=== PATIENT | female | born 2005 | race Asian ===

== ENCOUNTER 2023-06-02 10:00 | Emergency (ER) | payer BC, SELFPAY ==
[2023-06-02 10:19] VITALS: BP 117/48; PULSE 70; RESP 16; TEMP 36.7; O2SAT 98; BMI 21.3
--- NOTE | 2023-06-02 10:42 | ED_ITS ---
HPI - Animal Bite General Chief Complaint: Animal Bite Stated Complaint: dog bite Time Seen by Provider: 06/02/23 10:37 Source: patient Mode of arrival: ambulatory Limitations: no limitations History of Present Illness HPI narrative: This is a 18-year-old female presenting to the emergency department for evaluation of dog bite to the right calf, patient reports that this happened last night [place] school campus, she reports that on known dog approached her and bit her right lower extremity, she reports pain, bruising, unclear on dog's vaccination status patient unsure if she has her tetanus shot. Denies fevers, chills, numbness, tingling, headache, vision changes, chest pain and shortness of breath. Related Data Previous Rx's Medication Instructions Recorded amoxicillin 875 mg-potassium 1 tab PO BID 10 days #20 tabs 06/02/23 clavulanate 125 mg tablet Allergies Allergy/AdvReac Type Severity Reaction Status Date / Time No Known Allergies Allergy Verified 06/02/23 10:18 Review of Systems Review of Systems: Constitutional : No Weight loss, No Fever, No Chills, No Fatigue, No Malaise ENT/Mouth : No sore throat, No Rhinorrhea Eyes: No Eye Pain, No Swelling, No Redness Cardiovascular : No Chest Pain, No SOB, No Dyspnea on Exertion, No Orthopnea, No Edema, No Palpitations Respiratory : No Cough, No Sputum, No Wheezing Gastrointestinal : No Nausea, No Vomiting, No Diarrhea, No Constipation, No abdominal Pain, No Hematochezia, No Melena Genitourinary : No Dysuria, No Urinary Frequency, No Hematuria, Musculoskeletal : No joint pain, No Myalgias, No Joint Swelling Skin : No Skin Lesions, No rash Neuro : No Weakness, No Numbness, No Dizziness, No Headache Psych : No Anxiety/Panic, No Depression All other systems reviewed and are negative Yes all other systems are reviewed and are negative [facility], [facility] Past Medical History Attestation statement: The following information was validated with the patient. Source: old records reviewed and nursing notes reviewed Social History Social History Advance Directives: No Advance Directives Information Provided: No Physical Exam ED Vital Signs: Vital Signs - 24 hr 06/02/23 10:19 Temperature 98.0 F Pulse Rate 70 Respiratory Rate 16 Blood Pressure 117/48 L Pulse Oximetry 98 Oxygen Delivery Method Room Air BMI result Body Mass Index 21.3 vss Appearance: Alert.? Oriented X3.? No acute distress.? Head: Normocephalic, atraumatic, no step-offs or deformities Eyes: Pupils equal, round and reactive to light.? ENT: Pharynx normal.? Neck: Normal inspection.? Neck supple.? CVS: Normal heart rate and rhythm.? Pulses normal.? Respiratory: No respiratory distress.? Breath sounds normal.? Abdomen: Soft and nontender.? Skin: Skin warm and dry.? Normal skin color.? Normal skin turgor.?+ there is a puncture wound noted to patient's right posterior calf, it appears to be healing with overlying ecchymosis and tenderness to palpation overlying, no fluctuance normal sensation. 2+ popliteal pulses, 2+ dorsalis pedis, anterior tibialis and posterior tibialis pulses equal bilateral. Extremities: No lower extremity edema.? No calf ttp. 5/5 strength to bilateral upper and lower extremities Back: No midline tenderness, no C-spine tenderness, full range of motion, no CVA tenderness bilaterally Neuro: Oriented X 3.? No motor deficit.? No sensory deficit. CN 2-12 intact Course Reevaluation(s) Reevaluation #1: Patient spoke to mom, would like to wait to initiate rabies series, she is going to reach out to public safety and see if they can identify his dog this was. If not she will come back for rabies series we will start with Boostrix, Augmentin. Educated patient on diagnosis and treatment plan, answered all question, patient verbalizes understanding. At this time patient will be discharged home, advised to return with new or worsening symptoms. Educated on worrisome signs and symptoms and when to return. At this time I feel comfortable discharge home. Time: 11:22 Reevaluation #2: Patient changed her mind and now would like her rabies series and rabies shot. Will administer a small amount into wound the rest around it, she will come for subsequent injection she was given the handout for this. Educated patient on diagnosis and treatment plan, answered all question, patient verbalizes understanding. At this time patient will be discharged home, advised to return with new or worsening symptoms. Educated on worrisome signs and symptoms and when to return. At this time I feel comfortable discharge home. Time: 11:52 Medical Decision Making Medical Decision Making [facility] Narrative: 1042 18-year-old female presents with dog bite to the posterior aspect of right leg happened yesterday unknown dog. Unclear if up-to-date on tetanus shot Physical exam + there is a puncture wound noted to patient's right posterior calf, it appears to be healing with overlying ecchymosis and tenderness to palpation overlying, no fluctuance normal sensation. 2+ popliteal pulses, 2+ dorsalis pedis, anterior tibialis and posterior tibialis pulses equal bilateral. This is likely a dog bite, unlikely abscess, infection at this time. Unlikely neurovascular compromise or threat to limb. No signs of fracture dislocation. Plan at this time patient would like to discuss this with her mother, I explained to her her options explained her she can try to figure out the dog's vaccination status and see if public safety on campus knows anything about the dog or she can start the rabies series however she would like to discuss this with her mom. Will check back in with patient. Will give tetanus shot. Differential Diagnosis Differential Diagnoses: The differential diagnosis associated with the pres entation includes This is likely a dog bite, unlikely abscess, infection at this time. Unlikely neurovascular compromise or threat to limb. No signs of fracture dislocation. Admission/Observation Consideration of admission/observation: Escalation of care including admission/observation considered Lab Data [facility] Lab Attestation statement: I reviewed the patient's lab results. Prescription Management I considered prescription management with: Antibiotic Critical Care Time Critical Care Time Critical Care Time: Yes Total Critical Care Time: 35 Attestation: I attest to this time spent taking care of the patient, obtaining history, physical, reviewing labs, imaging, speaking to my attending, speaking to specialist. Discharge Plan Discharge Clinical Impression: Dog bite Patient Disposition: Home, Self-Care Instructions: Animal Bite (ED), Rabies (ED) Additional Instructions: Take your medications as prescribed. If you were prescribed antibiotics today, it is important that you take your medication to their entirety, do not skip any doses, do not finish them early. Follow-up with your primary care provider this week. Return to the emergency department with new or worsening symptoms. Such as fevers, chills, chest pain, shortness of breath, nausea, vomiting, dizziness, headache, vision changes, lethargy In case of emergency call 911 Please return for your rabies series on dates we discussed. Prescriptions: New amoxicillin-pot clavulanate 875-125 mg tablet 1 tab PO BID 10 Days Qty: 20 0RF Referrals: Physician,None [Primary Care Provider] - 2 days Stand Alone Forms: Work/School Release
[2023-06-02] MEDS: Diphth,Pertus(ACell),Tet Adult 0.5 ML SYRINGE IM (12:15)
[2023-06-02] MEDS: Rabies Vaccine, Human Diploid (Imovax) 1 ML VIAL IM (12:22)
[2023-06-02] MEDS: Rabies Immune Globulin/PF 900 UNIT/3 ML VIAL 1124 UNIT IM (12:30)
== END 2023-06-02 13:13 | disposition home or self-care (01) ==
PROVIDERS: Emergency Provider Emergency Medicine Emergency Medical Services
DX: S81.851A Open bite, right lower leg, initial encounter (principal); W54.0XXA Bitten by dog, initial encounter; Y93.01 Activity, walking, marching and hiking; Y92.214 College as the place of occurrence of the external cause; Y99.9 Unspecified external cause status; Z20.3 Contact with and (suspected) exposure to rabies
CPT/HCPCS: 90375; 90471; 90675; 90715; 96372; 99283; 99284

== ENCOUNTER 2023-06-05 10:01 | Outpatient (REF) | payer BC, SELFPAY | END 2023-06-05 10:02 | disposition home or self-care (01) | LOC: HO.MDS 10:01 | PROVIDERS: Visit Provider Physician Assistant | DX: Z20.3 Contact with and (suspected) exposure to rabies (principal); T14.8XXD Other injury of unspecified body region, subsequent encounter; W54.0XXD Bitten by dog, subsequent encounter | CPT/HCPCS: 90471; 90675 ==

== ENCOUNTER 2023-06-09 12:42 | Outpatient (REF) | payer BC, SELFPAY | END 2023-06-09 12:43 | disposition home or self-care (01) | LOC: HO.MDS 12:42 | PROVIDERS: Visit Provider Physician Assistant | DX: Z20.3 Contact with and (suspected) exposure to rabies (principal); T14.8XXD Other injury of unspecified body region, subsequent encounter; W54.0XXD Bitten by dog, subsequent encounter | CPT/HCPCS: 90471; 90675 ==

== ENCOUNTER 2023-06-16 13:08 | Outpatient (REF) | payer BC, SELFPAY | END 2023-06-16 13:09 | disposition home or self-care (01) | LOC: HO.MDS 13:08 | PROVIDERS: Visit Provider Physician Assistant | DX: Z20.3 Contact with and (suspected) exposure to rabies (principal); T14.8XXD Other injury of unspecified body region, subsequent encounter; W54.0XXD Bitten by dog, subsequent encounter | CPT/HCPCS: 90471; 90675 ==